=== PATIENT | male | born 1970 | race Caucasian/White ===

== ENCOUNTER 2020-05-21 15:18 | Day surgery (SDC) | payer BC, OTHER ==
[~2020-05-21] VITALS: Ht 188 cm; Wt 80.8 kg
[2020-05-21] MEDS ORDERED: FLUD0.1T (15:29)
[2020-05-21] MEDS ORDERED: PRED5TA (15:29)
--- NOTE | 2020-05-21 15:57 | REP ---
INDICATION: trauma. COMPARISON: None. TECHNIQUE: Four views of the small finger of the right hand. FINDINGS: Four views of the right small finger demonstrate an irregular soft tissue and bony disruption of the distal tuft. Crush-type fracture open injury.. . No opaque foreign body noted. The distal tuft fragment is displaced somewhat in a radial direction. There is old posttraumatic 4 deformity in the distal diaphysis of the 5th metacarpal. IMPRESSION: Open crush-type distal tuft fracture 5th digit.. <Electronically signed by Dave Spear > 05/21/20 [id number]
[2020-05-21] MEDS ORDERED: ceFAZolin SOD 2 GM in IV 1 EA IV ONE (16:45)
[2020-05-21] MEDS ORDERED: BOOSTRIX/ADACEL VACCINE (DIPHTH/PERTUSS/ACELL/TETANUS) 0.5ML SYR IM ONE (16:45)
--- NOTE | 2020-05-21 17:43 | REP ---
INDICATION: finger injury, ortho request COMPARISON: None. TECHNIQUE: Four views FINDINGS: There is a fracture of the 5th digit distal phalange distal tuft with distraction of the distal fracture fragment and adjacent soft tissue injury. 1. No other fractures are identified. No calcifications or foreign bodies. IMPRESSION: Fifth digit distal phalange distal tuft fracture and adjacent soft tissue injury <Electronically signed by Krunal Izquierdo > 05/21/20 [id number]
[2020-05-21] MEDS ORDERED: ONDANSETRON 4MG/2ML VIAL As Ordered ONE (19:46)
[2020-05-21] MEDS ORDERED: MIDAZOLAM INJ 2MG/2ML VIAL (J2250 PER 1MG) As Ordered ONE (19:46)
[2020-05-21] MEDS ORDERED: LIDOCAINE 2% 100MG/5ML SDV (FOR ANES.) As Ordered ONE (19:46)
[2020-05-21] MEDS ORDERED: fentaNYL 100 MCG/2 ML INJECTION (J3010) As Ordered ONE (19:46)
[2020-05-21] MEDS ORDERED: dexameTHASONE 4 MG/ML 1ML VIAL (J1100 PER 1MG) As Ordered ONE (19:46)
[2020-05-21] MEDS ORDERED: propofoL 200 MG/20 ML VIAL As Ordered ONE (19:46)
[2020-05-21] MEDS ORDERED: ACETAMINOPHEN 1000MG 100ML IV BTL (OFIRMEV) (J0131 PER 10MG) As Ordered ONE (20:21)
--- NOTE | 2020-05-21 21:48 | ER ---
ER CONSULTATION Approximate Time of Consult: 7:00 PM CONSULTING SERVICE: Orthopedic Surgery CONSULTING PHYSICIAN: John Paul Gomez MD REASON FOR CONSULTATION: Right open fracture of the distal phalanx of the small finger HISTORY OF PRESENT ILLNESS: This was a 49-year-old male who sustained the aforementioned right open distal phalanx fracture of the small finger after a large bag of concrete caught his finger during work on a job site. The patient presented to the [facility] for further evaluation and treatment. The patient at the time of arrival had his right hand bandaged for the aforementioned injury. 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 PAST SURGICAL HISTORY: The patient's past surgical history is significant for: 1. Right olecranon open reduction internal fixation in 1988. 2. Splenectomy in 1997. ALLERGIES: No known drug allergies. MEDICATIONS: 1. Prednisone. 2. Fludrocortisone. SOCIAL HISTORY: The patient is a nonsmoker. One beer a day drinker. No intravenous drug abuse. PHYSICAL EXAMINATION: GENERAL APPEARANCE: The patient was alert to person, time and place. EXTREMITIES: His right upper extremity had 5/5 motor strength to the musculocutaneous, axillary, radial, median and ulnar nerve distributions. Sensation was intact to light touch, again the musculocutaneous, axillary, radial, median and ulnar nerve distributions. He did have sensation intact to the radial and ulnar aspects of his right small finger to the level of the crush injury. The patient had an open fracture to the distal phalanx of the small finger with a 2 mm skin bridge connecting the finger pad to the proximal intact finger. He had brisk bleeding on arrival to the injury. Regarding his small finger, he did not have brisk capillary refill to the nail plate. However, his remaining fingers did have one or two second capillary refill. This appeared to be an isolated injury to the small finger of the right hand involving the distal phalanx. IMAGING DATA: The patient had a comminuted distal phalanx fracture involving 50% of his distal phalanx of the right small finger on the AP and lateral views. There did not appear to be any propagating fracture to the distal phalanx joints. There is obvious soft tissue disruption to the distal phalanx of the small finger of the right hand on the radiographs. IMPRESSION: This is a 49-year-old male who received a Tetanus booster shot on arrival as well as 2 grams of Ancef who has the aforementioned right small finger distal phalanx comminuted open fracture requiring revision and amputation. PLAN: Given the patient's significant distal phalanx trauma and likely nonviable distal finger pad, he will require revision and amputation to the right small finger distal phalanx. It will likely require removing he comminuted bone fragments and using the residual remaining dermis as a biologic dressing for the distal phalanx. It will likely require removal of the nail and inspection of his nail plate as well. The patient has been n.p.o. since 12:30 p.m. He is right hand dominant and should be cleared for surgery this evening for the aforementioned surgery.
[2020-05-21] MEDS ORDERED: fentaNYL 100 MCG/2 ML INJECTION (J3010) IV PRN (22:00)
[2020-05-21 22:50] VITALS: BP 128/80
--- NOTE | 2020-05-22 07:41 | REP ---
INDICATION: SURGICAL PROCEDURE , Mini-C COMPARISON: Plain film studies of the 5th digit and plain film study of the right hand dated 05/21/2020. TECHNIQUE: There are 2 intraoperative fluoroscopic views of the right hand 5th digit. FINDINGS: There is amputation of the 5th digit at the level of the middle phalange proximal shaft. Fluoroscopic exposure time was 8.5 seconds. IMPRESSION: Negative . <Electronically signed by Krunal Izquierdo > 05/22/20 [id number]
--- NOTE | 2020-05-22 08:25 | RO ---
OPERATIVE NOTE DATE OF OPERATION: 05/21/2020 at approximately 8 p.m. PREOPERATIVE DIAGNOSIS: Right small finger open distal phalanx comminuted fracture. POSTOPERATIVE DIAGNOSIS: Right small finger open distal phalanx comminuted fracture. NAME OF OPERATION: 1. Revision amputation of the right small finger distal phalanx. 2. Irrigation and debridement of the right small finger. SURGEON: John Paul Gomez MD PERSONAL CARE ASSISTANT: None. SUPERVISING ATTENDANT: John Paul Gomez MD FINDINGS: The patient had a comminuted open distal phalanx fracture of the right small finger. 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 The patient presented to the [facility] emergency department for further evaluation and treatment. Orthopedic surgery was consulted for further evaluation and treatment. He was indicated for a revision amputation of the right distal phalanx of the small finger. ANESTHESIA: General endotracheal anesthesia. TOURNIQUET TIME: 45 minutes. ESTIMATED BLOOD LOSS: 10 mL. IV ANTIBIOTICS: None (2 grams of Ancef was given in the ER) IV FLUIDS: Please see anesthesia report. CULTURES: None. SPECIMEN: None. IMPLANTS: None. PROCEDURE IN DETAIL: The patient was met in the preoperative holding area where the patient's operative extremity was signed, the patient's consent was confirmed to be correct, and the patient's identity was confirmed to be correct. The patient was then transported to the operating theater where he was placed supine with his right upper extremity outstretched onto a hand table. Safety straps secured the patient to the bed. All bony prominences were well padded. The bilateral lower extremities had SCDs in place. A timeout was called to confirm correct patient, correct operative extremity and correct consent, and all staff was in agreement. The patient's right upper extremity was then draped in the usual sterile fashion. We began the procedure by performing a debridement of the nonviable tissue to include the most distal extent of his distal phalanx finger pad. After debridement of nonviable tissue, we then removed the comminuted 50% of the distal phalanx using a rongeur and then used a rasp to smooth out the remaining residual distal phalanx portion. We then copiously irrigated the injured site with 6 liters of normal saline. After copious irrigation, we then checked the residual distal phalanx using the mini fluoroscope confirming that we had a stable base to the distal phalanx of the right small finger. Of note, the nail plate was removed in order to ensure that there were no lacerations of the nail bed which there were not. At this point in time, we then began our closure. We advanced the volar aspect of the small finger to the nail plate and this was approximated with 3-0 chromic gut suture. After this was complete, we then used an aluminum foil metallic protector in order to place in the eponychial fold which would be used to ensure closure of the eponychial fold did not happen. Of note, eponychial fold must remain open for 48 hours. This was secured with chromic gut suture. We then placed Xeroform over the small finger revision amputation followed by Zee wrap, 4x4 gauze. The patient's right arm was placed in a volar slab splint. The patient was extubated without complication and transported to the postanesthesia care unit. At this point in time, the patient will have his dressing checked in one week and he will follow up with the [facility] with Dr. Oh. At that point in time, his dressings will be removed; they will remove the aluminum foil nail plate protector. Since the suture is chromic gut, these do not have to be removed; however then, can be trimmed as appropriate. The patient will remain in his volar slab splint for one week. The patient will use Tylenol [id number] for pain control, 325 every four hours not to exceed 3200 mg per day. The patient had no family at bedside; however, he was given home instructions.
== END 2020-05-21 22:50 | disposition home or self-care (01) ==
LOC: M ED 15:18 → M SDC 19:36
PROVIDERS: ATTEND Orthopaedic Surgery
DX: S62.636B Displaced fracture of distal phalanx of right little finger, initial encounter for open fracture (principal); D51.0 Vitamin B12 deficiency anemia due to intrinsic factor deficiency; Z79.899 Other long term (current) drug therapy; W23.1XXA Caught, crushed, jammed, or pinched between stationary objects, initial encounter; Y92.69 Other specified industrial and construction area as the place of occurrence of the external cause; Y99.0 Civilian activity done for income or pay; Y92.89 Other specified places as the place of occurrence of the external cause; Y93.9 Activity, unspecified
CPT/HCPCS: 11010; 26951; 73130; 73140; 90471; 90715; 96365; 99283; J0131; J0690; J1100; J2250; J2405; J3010; U0002

== ENCOUNTER 2020-08-01 09:30 | Outpatient (RCR) | payer BC, OTHER ==
[~2020-08-01 09:30] MED LIST: FLUD0.1T; PRED5TA
== END 2020-08-12 ==
LOC: M OT 09:30
PROVIDERS: ATTEND Orthopaedic Surgery
DX: S68.626D Partial traumatic transphalangeal amputation of right little finger, subsequent encounter (principal)

== ENCOUNTER 2022-10-24 08:01 | Observation (INO) | payer BC, OTHER ==
[~2022-10-24] VITALS: Ht 188 cm; Wt 74.3 kg
[~2022-10-24 08:01] MED LIST changes: -FLUD0.1T; +FLUD0.1T PO; -PRED5TA; +PRED5TA PO
[2022-10-24] MEDS ORDERED: ONDANSETRON 4MG 2ML VIAL IV ONE (08:35)
[2022-10-24] MEDS: MORPHINE 2 MG/ML 1ML VIAL IV PRN (08:52)
[2022-10-24 09:00] LABS: HEMATOCRIT 42.3 % (42.0-52.0); HEMOGLOBIN 14.4 g/dl (13.5-17.5); MEAN CORPUSCULAR HEMOGLOBIN 31.1 pg (27.0-33.0); MEAN CORPUSCULAR VOLUME 91.4 fl (80.0-96.0); PLATELET COUNT, AUTOMATED 427 10^3/uL (150-450); RED BLOOD COUNT 4.63 10^6/uL (4.30-6.10); WHITE BLOOD COUNT 21.9 10^3/uL (4.0-10.0)
[2022-10-24 09:15] LABS: LIPASE 30 U/L (12-53)
[2022-10-24 09:17] LABS: ALBUMIN 4.2 G/DL (3.2-5.2); ALKALINE PHOSPHATASE 67 U/L (46-116); ALT/SGPT 26 U/L (7.0-40); AST/SGOT 22 U/L (<34); BILIRUBIN,DIRECT 0.3 MG/DL (<0.4); BILIRUBIN,TOTAL 0.8 MG/DL (0.3-1.2); BLOOD UREA NITROGEN 9 MG/DL (9-23); CALCIUM LEVEL 8.9 MG/DL (8.5-10.1); CARBON DIOXIDE LEVEL 28 MMOL/L (20-31); CHLORIDE LEVEL 102 MMOL/L (98-107); CK-MB VALUE MASS < 1.0 NG/ML (<3.6); CPK CREATINE PHOSPHOKINASE 57 U/L (46-171); CREATININE FOR GFR 0.63 MG/DL (0.70-1.30); GLOMERULAR FILTRATION RATE > 60.0 (>56); GLUCOSE, FASTING 102 MG/DL (60-100); MB/CK RELATIVE INDEX 1.75 (< OR =4); POTASSIUM SERUM 4.5 MMOL/L (3.5-5.1); SODIUM LEVEL 138 MMOL/L (136-145); TOTAL PROTEIN 6.9 G/DL (5.7-8.2)
[2022-10-24 09:19] LABS: FREE T4 1.22 NG/DL (0.89-1.76); THYROID STIMULATING HORMONE 0.611 uIU/ML (0.55-4.78)
[2022-10-24] MEDS ORDERED: ISOVUE-370 76% 100ML VIAL As Ordered ONE (09:27)
[2022-10-24 09:37] LABS: RSV AMPLIFICATION NEGATIVE (NEGATIVE)
[2022-10-24 10:32] LABS: ATYPICAL LYMPH 1 % (0-5); LYMPHOCYTES 4 % (16-44); MONOCYTES 4 % (0-5); NEUTROPHILS 86 % (28-66)
[2022-10-24 10:33] LABS: PLATELET ESTIMATE NORMAL (NORMAL)
[2022-10-24 10:43] LABS: CK-MB VALUE MASS < 1.0 NG/ML (<3.6)
[2022-10-24 10:44] LABS: CPK CREATINE PHOSPHOKINASE 48 U/L (46-171); MB/CK RELATIVE INDEX 2.08 (< OR =4)
[2022-10-24] MEDS ORDERED: PIPERACILLIN/TAZOBACTAM SOD 4.5 GM in D5W MINI-BAG PLUS 50 ML IV ONE (11:45)
[2022-10-24] MEDS ORDERED: NS 1,000 ML IV ONE (11:45)
[2022-10-24] MEDS ORDERED: MENSCAP PO (12:33)
[2022-10-24] MEDS ORDERED: VITA100093 PO (12:33)
[2022-10-24] MEDS ORDERED: HOME MED LIST COMPLETE! XX SCH (12:35)
[2022-10-24] MEDS ORDERED: BENZONATATE 100MG CAPSULE PO PRN (13:10)
[2022-10-24] MEDS ORDERED: KETOROLAC 30 MG/ML 1ML VIAL IV PRN (13:10)
[2022-10-24] MEDS ORDERED: ALBUTEROL 90 MCG/ACT 8GM HFA INHALER INH PRN (13:10)
[2022-10-24 14:03] LABS: HEMATOCRIT 41.7 % (42.0-52.0); HEMOGLOBIN 13.8 g/dl (13.5-17.5); MEAN CORPUSCULAR HEMOGLOBIN 30.6 pg (27.0-33.0); MEAN CORPUSCULAR HGB CONC 33.1 g/dl (32.0-36.5); MEAN CORPUSCULAR VOLUME 92.5 fl (80.0-96.0); PLATELET COUNT, AUTOMATED 409 10^3/uL (150-450); RED BLOOD COUNT 4.51 10^6/uL (4.30-6.10); WHITE BLOOD COUNT 16.4 10^3/uL (4.0-10.0)
[2022-10-24] MEDS: PANTOPRAZOLE 40MG TAB (PROTONIX) PO SCH (17:04)
[2022-10-24] MEDS: AZITHROMYCIN 250MG TABLET PO SCH (17:04)
[2022-10-24 17:58] VITALS: BP 115/68
[2022-10-24] MEDS ORDERED: RIVAROXABAN 10MG TAB (XARELTO) PO SCH (18:00)
[2022-10-24 20:00] VITALS: PULSE 56
[2022-10-24 20:04] VITALS: BP 116/63
[2022-10-25 00:55] VITALS: BP 118/68
[2022-10-25 05:00] VITALS: BP 121/70
[2022-10-25] MEDS: MORPHINE 2 MG/ML 1ML VIAL IV PRN (06:22)
[2022-10-25 07:29] LABS: HEMATOCRIT 42.1 % (42.0-52.0); HEMOGLOBIN 13.8 g/dl (13.5-17.5); MEAN CORPUSCULAR HEMOGLOBIN 30.2 pg (27.0-33.0); MEAN CORPUSCULAR HGB CONC 32.8 g/dl (32.0-36.5); MEAN CORPUSCULAR VOLUME 92.1 fl (80.0-96.0); PLATELET COUNT, AUTOMATED 419 10^3/uL (150-450); RED BLOOD COUNT 4.57 10^6/uL (4.30-6.10); WHITE BLOOD COUNT 14.4 10^3/uL (4.0-10.0)
[2022-10-25 07:51] LABS: BLOOD UREA NITROGEN 7 MG/DL (9-23); CALCIUM LEVEL 8.9 MG/DL (8.5-10.1); CARBON DIOXIDE LEVEL 29 MMOL/L (20-31); CHLORIDE LEVEL 103 MMOL/L (98-107); CREATININE FOR GFR 0.64 MG/DL (0.70-1.30); GLOMERULAR FILTRATION RATE > 60.0 (>56); GLUCOSE, FASTING 92 MG/DL (60-100); POTASSIUM SERUM 4.1 MMOL/L (3.5-5.1); SODIUM LEVEL 138 MMOL/L (136-145)
[2022-10-25 08:00] VITALS: BP 113/58
[2022-10-25] MEDS: PANTOPRAZOLE 40MG TAB (PROTONIX) PO SCH (08:05)
[2022-10-25] MEDS: AZITHROMYCIN 250MG TABLET PO SCH (08:05)
[2022-10-25 08:08] VITALS: BP 113/58
[2022-10-25] MEDS ORDERED: VITAMIN D 1,000 INTERNATIONAL UNITS TABLET PO SCH (09:00)
[2022-10-25] MEDS ORDERED: predniSONE 5 MG TAB PO SCH (09:00)
[2022-10-25] MEDS ORDERED: FLUDROCORTISONE ACETATE 0.1 MG TAB PO SCH (09:00)
[2022-10-25] MEDS ORDERED: BENZ-18 PO (10:07)
[2022-10-25] MEDS ORDERED: MELO15TA28 PO (10:07)
[2022-10-25] MEDS ORDERED: PANT40TA29 PO (10:07)
[2022-10-25] MEDS ORDERED: AZIT-12 PO (10:07)
[2022-10-25] MEDS ORDERED: VENTAER INH (10:07)
== END 2022-10-25 11:50 | disposition home or self-care (01) ==
LOC: M ED 08:01 → M ED INP 12:47 → ENRESERV 16:46 → M PCU 17:47
PROVIDERS: ADMIT Internal Medicine; ATTEND Internal Medicine
DX: J20.8 Acute bronchitis due to other specified organisms (principal); R09.1 Pleurisy; D72.829 Elevated white blood cell count, unspecified; E86.0 Dehydration; Z79.51 Long term (current) use of inhaled steroids; Z79.52 Long term (current) use of systemic steroids; Z79.899 Other long term (current) drug therapy
CPT/HCPCS: 36415; 71045; 71275; 80047; 80048; 80076; 81001; 82550; 82553; 83605; 83690; 84145; 84439; 84443; 84484; 85025; 85027; 87040; 87631; 93005; 93041; 94760; 96365; 96375; 96376; 99285; J1885; J2405; J2543; J7512; Q9967

== ENCOUNTER 2022-10-28 10:28 | Observation (INO) | payer BC ==
[~2022-10-28] VITALS: Ht 188 cm; Wt 77.3 kg
[~2022-10-28 10:28] MED LIST changes: +AZIT-12 PO; +BENZ-18 PO; +MELO15TA28 PO; +MENSCAP PO; +PANT40TA29 PO; +VENTAER INH; +VITA100093 PO
[2022-10-28] MEDS ORDERED: NS 1,000 ML IV SCH (11:40)
[2022-10-28] MEDS ORDERED: ONDANSETRON 4MG 2ML VIAL IV STA (11:57)
[2022-10-28 12:27] LABS: BASO # 0.1 10^3/uL (0.0-0.2); BASO % 0.5 % (0.0-1.0); EOS # 0.8 10^3/uL (0.0-0.5); HEMATOCRIT 44.1 % (42.0-52.0); LYMPH # 2.7 10^3/uL (1.5-5.0); LYMPH % 10.2 % (24.0-44.0); MEAN CORPUSCULAR HEMOGLOBIN 30.6 pg (27.0-33.0); MONO # 1.5 10^3/uL (0.0-0.8); MONO % 5.6 % (2.0-8.0); NEUTROPHILS # 21.2 10^3/uL (1.5-8.5); NEUTROPHILS % 80.1 % (36.0-66.0); PLATELET COUNT, AUTOMATED 470 10^3/uL (150-450); WHITE BLOOD COUNT 26.5 10^3/uL (4.0-10.0)
[2022-10-28 12:54] LABS: LIPASE 29 U/L (12-53)
[2022-10-28 12:56] LABS: ALKALINE PHOSPHATASE 63 U/L (46-116); ALT/SGPT 21 U/L (7.0-40); AST/SGOT 18 U/L (<34); BILIRUBIN,DIRECT 0.3 MG/DL (<0.4); BLOOD UREA NITROGEN 13 MG/DL (9-23); CALCIUM LEVEL 8.9 MG/DL (8.5-10.1); CARBON DIOXIDE LEVEL 26 MMOL/L (20-31); CHLORIDE LEVEL 102 MMOL/L (98-107); CREATININE FOR GFR 0.72 MG/DL (0.70-1.30); GLOMERULAR FILTRATION RATE > 60.0 (>56); GLUCOSE, FASTING 87 MG/DL (60-100); SODIUM LEVEL 137 MMOL/L (136-145); TOTAL PROTEIN 6.8 G/DL (5.7-8.2)
[2022-10-28 13:15] LABS: CORTISOL BASELINE < 0.5 UG/DL (4.3-22.4)
[2022-10-28] MEDS ORDERED: methylPREDNISolone 40MG 1ML VIAL IV ONE (13:15)
[2022-10-28] MEDS ORDERED: ISOVUE-370 76% 100ML VIAL As Ordered ONE (15:49)
[2022-10-28] MEDS ORDERED: MAALOX 30 ML SUSP *UDC PO PRN (17:50)
[2022-10-28] MEDS ORDERED: ACETAMINOPHEN TAB 650MG DOSE (2X325MG) PO PRN (17:50)
[2022-10-28] MEDS: NS 1,000 ML IV SCH (17:50)
[2022-10-28] MEDS ORDERED: MOM 30ML SUSPENSION UDC PO PRN (17:50)
[2022-10-28] MEDS ORDERED: FLUDROCORTISONE ACETATE 0.1 MG TAB PO ONE (18:25)
[2022-10-28] MEDS ORDERED: ALBUTEROL SULFATE 2.5MG/0.5ML INH NEB SOLN INH PRN (18:50)
[2022-10-28] MEDS ORDERED: HOME MED LIST COMPLETE! XX SCH (19:00)
[2022-10-28 19:02] LABS: RSV AMPLIFICATION NEGATIVE (NEGATIVE)
[2022-10-28] MEDS: DOCUSATE SODIUM 100MG CAPSULE PO SCH (19:29)
[2022-10-28] MEDS: LevoFLOXacin 750 MG TABLET PO SCH (19:48)
[2022-10-28] MEDS: guaiFENesin ER 600 MG TAB PO SCH (19:48)
[2022-10-28] MEDS ORDERED: methylPREDNISolone 40MG 1ML VIAL IV SCH (20:00)
[2022-10-28] MEDS ORDERED: PANTOPRAZOLE 40MG TAB (PROTONIX) PO SCH (21:00)
[2022-10-29] MEDS: NS 1,000 ML IV SCH ×2 (00:30→06:33)
[2022-10-29 05:57] LABS: BASO % 0.2 % (0.0-1.0); HEMATOCRIT 39.7 % (42.0-52.0); HEMOGLOBIN 13.4 g/dl (13.5-17.5); LYMPH # 1.4 10^3/uL (1.5-5.0); LYMPH % 6.4 % (24.0-44.0); MEAN CORPUSCULAR HEMOGLOBIN 30.4 pg (27.0-33.0); MEAN CORPUSCULAR HGB CONC 33.8 g/dl (32.0-36.5); MONO # 0.8 10^3/uL (0.0-0.8); MONO % 3.9 % (2.0-8.0); NEUTROPHILS # 19.2 10^3/uL (1.5-8.5); PLATELET COUNT, AUTOMATED 437 10^3/uL (150-450); RED BLOOD COUNT 4.41 10^6/uL (4.30-6.10); WHITE BLOOD COUNT 21.6 10^3/uL (4.0-10.0)
[2022-10-29 06:10] LABS: BLOOD UREA NITROGEN 13 MG/DL (9-23); CALCIUM LEVEL 8.3 MG/DL (8.5-10.1); CARBON DIOXIDE LEVEL 25 MMOL/L (20-31); CHLORIDE LEVEL 105 MMOL/L (98-107); CREATININE FOR GFR 0.56 MG/DL (0.70-1.30); GLOMERULAR FILTRATION RATE > 60.0 (>56); GLUCOSE, FASTING 114 MG/DL (60-100); MAGNESIUM LEVEL 1.6 MG/DL (1.8-2.4); POTASSIUM SERUM 4.3 MMOL/L (3.5-5.1); SODIUM LEVEL 138 MMOL/L (136-145)
[2022-10-29] MEDS: LevoFLOXacin 750 MG TABLET PO SCH (06:30)
[2022-10-29] MEDS ORDERED: ENOXAPARIN 40MG/0.4ML SYRINGE (J1650 PER 10MG) SC SCH (09:00)
[2022-10-29] MEDS ORDERED: FLUDROCORTISONE ACETATE 0.1 MG TAB PO SCH (09:00)
[2022-10-29] MEDS: DOCUSATE SODIUM 100MG CAPSULE PO SCH (09:00)
[2022-10-29] MEDS: guaiFENesin ER 600 MG TAB PO SCH (09:08)
[2022-10-29] MEDS: MAG SULF 1GM/100ML (MAG RUN) 1 GM in IV 1 EA IV SCH ×2 (09:08→10:18)
[2022-10-29 09:30] VITALS: BP 99/55
[2022-10-29] MEDS ORDERED: LEVO1TAB40 PO (11:02)
[2022-10-29] MEDS ORDERED: PANT40TA29 PO (11:03)
== END 2022-10-29 11:37 | disposition home health service (06) ==
LOC: M ED 10:28 → M ED INP 17:48
PROVIDERS: ADMIT Internal Medicine; ATTEND Internal Medicine
DX: R11.2 Nausea with vomiting, unspecified (principal); D72.829 Elevated white blood cell count, unspecified; E27.2 Addisonian crisis; Z79.899 Other long term (current) drug therapy; Z79.51 Long term (current) use of inhaled steroids; Z90.81 Acquired absence of spleen; R07.9 Chest pain, unspecified
CPT/HCPCS: 36415; 71260; 74177; 80048; 80076; 81001; 82533; 83605; 83690; 83735; 84145; 85025; 87040; 87631; 93005; 93041; 94010; 96361; 96374; 96375; 96376; 97161; 99285; J1100; J2405; J2920; J3475; Q9967

== ENCOUNTER → 2023-12-30 | Outpatient (REF) | payer BC ==
[~2023-12-30] MED LIST changes: +LEVO1TAB40 PO
== END ==
LOC: M LAB REF 16:23
PROVIDERS: ATTEND Physician Assistant Medical
DX: E27.1 Primary adrenocortical insufficiency (principal)

== ENCOUNTER → 2024-06-30 | Outpatient (REF) | payer BC | LOC: M LAB REF 12:27 | PROVIDERS: ATTEND Internal Medicine | DX: Z71.3 Dietary counseling and surveillance (principal) ==

== ENCOUNTER 2024-08-10 14:45 | Emergency (ER) | payer BC ==
[~2024-08-10] VITALS: Ht 188 cm; Wt 81.2 kg
[2024-08-10 14:48] VITALS: TEMP 98.2
[2024-08-10] MEDS ORDERED: CYCL-707 (15:00)
[2024-08-10 21:40] VITALS: BP 19/67; O2SAT 98
== END 2024-08-10 21:42 | disposition home or self-care (01) ==
LOC: M ED 14:45
DX: M25.511 Pain in right shoulder (principal); E27.1 Primary adrenocortical insufficiency; D72.829 Elevated white blood cell count, unspecified; Z79.899 Other long term (current) drug therapy

== ENCOUNTER → 2024-09-07 | Outpatient (REF) | payer BC ==
[~2024-09-07] MED LIST changes: +CYCL-707
== END ==
LOC: M LAB REF 12:05
PROVIDERS: ATTEND Nurse Practitioner Family
DX: E27.1 Primary adrenocortical insufficiency (principal); R42 Dizziness and giddiness

== ENCOUNTER → 2024-09-15 | Outpatient (REF) | payer BC | LOC: M LAB REF 12:15 | PROVIDERS: ATTEND Physician Assistant Medical | DX: E27.1 Primary adrenocortical insufficiency (principal) ==

== ENCOUNTER → 2025-01-05 | Outpatient (REF) | payer BC | LOC: M LAB REF 12:18 | PROVIDERS: ATTEND Physician Assistant Medical | DX: E27.1 Primary adrenocortical insufficiency (principal) ==